=== PATIENT | female | born 1955 | race Caucasian/White ===

== ENCOUNTER 2019-11-27 12:31 | Outpatient (CLI) | payer MEDICARE, BC | END 2019-11-27 23:59 | disposition home or self-care (01) | LOC: CFH 12:31 | PROVIDERS: ATTEND Internal Medicine | DX: Z12.31 Encounter for screening mammogram for malignant neoplasm of breast (principal); N64.89 Other specified disorders of breast; N95.8 Other specified menopausal and perimenopausal disorders | CPT/HCPCS: 77063; 77067 ==

== ENCOUNTER → 2020-02-20 | Outpatient (CLI) | payer MEDICARE, BC | END | disposition home or self-care (01) | LOC: CARD 10:28 | PROVIDERS: ATTEND Internal Medicine | DX: I10 Essential (primary) hypertension (principal); R06.02 Shortness of breath; R53.83 Other fatigue | CPT/HCPCS: 93017 ==